=== PATIENT | female | born 1980 | race Caucasian/White ===

== ENCOUNTER 2024-09-08 15:57 | Emergency (ER) | payer SELFPAY ==
[2024-09-08 16:05] VITALS: BP 127/83; PULSE 110; RESP 16; TEMP 36.6; O2SAT 100
--- NOTE | 2024-09-08 17:10 | ED_ITS ---
HPI - Anxiety General Chief Complaint: Anxiety Stated Complaint: Anxiety Source: patient Mode of arrival: ambulatory Limitations: no limitations History of Present Illness HPI narrative: Patient presents for evaluation of anxiety. She indicates she drinks 5-8 shots of vodka daily. Last drink 1.5 days ago. She now reports anxiety and feeling jittery. She denies any visual or auditory hallucinations, paresthesias, palpitations, chest pain or shortness of breath. She indicates in the past she took lorazepam which helped reduce her anxiety levels. She denies any suicidal or homicidal ideations. Related Data Home Medications ?Medication ?Instructions ?Recorded ?Confirmed ?Last Taken ?Type albuterol sulfate 90 mcg/actuation 2 inh inhalation QID PRN shortness 09/08/24 Unknown History aerosol inhaler (Ventolin HFA) of breath or wheezing Allergies Allergy/AdvReac Type Severity Reaction Status Date / Time No Known Allergies Allergy Verified 09/08/24 16:22 Review of Systems Review of Systems: CONSTITUTIONAL: Denies fever, chills, or sweats. EYES: Denies visual changes, redness, or discharge. ENT: Denies rhinorrhea, congestion, sore throat, or otalgia. CARDIOVASCULAR: Denies chest pain, palpitations, or edema. RESPIRATORY: Denies cough or dyspnea. GASTROINTESTINAL: Denies abdominal pain, nausea, vomiting, or diarrhea. GENITOURINARY: Denies dysuria or hematuria. SKIN: Denies rash or itching. MUSCULOSKELETAL: Denies back pain, joint pain, or myalgia. NEUROLOGIC: Denies headache, numbness, dizziness, or weakness. PSYCHIATRIC: Reports anxiety and feeling jittery. Denies suicidal or homicidal ideations [facility] Past Medical History Medical History Anxiety Alcohol abuse Surgical History Surgical History No pertinent past surgical history Family History Family History Mother Family history non-contributory Social History Social History Smoking packs per day: 1 Smoking cigarettes per day: 20.0 Smoking status: Current every day smoker Tobacco type: cigarettes Alcohol intake: current Drinks per week: 50 Substance use: current Substance use type: marijuana Additional occupation/education comments: works at [employer] Gender identity (if verbalized by the patient): Female Sexual Orientation (if Verbalized by the Patient): Straight or Heterosexual Exam Narrative: GENERAL: Well-appearing, well-nourished, and in no acute distress. HEAD: Normocephalic, atraumatic. EYES: PERRLA and EOMI. ENT: Nares clear, no rhinorrhea or epistaxis. Mucous membranes moist. Oropharynx without tonsillar hypertrophy exudate or other lesions. Bilateral TMs pearly santizo nonbulging NECK: Supple. No adenopathy or masses. No carotid bruits or JVD CHEST: Clear to auscultation. No respiratory distress. No wheezes rales or rhonchi HEART: Regular rate and rhythm. No murmur heard. Normal peripheral pulses. ABDOMEN: Soft, nontender, nondistended, normal active bowel sounds. EXTREMITIES: Normal range of motion. No edema. SKIN: Warm, dry, no rash. NEURO: No focal deficits. Alert and oriented x3. PSYCH: Anxious and tearful Course Course Emergency Course: This is a 44-year-old female who presented for evaluation of anxiety after abruptly stopping alcohol consumption 1.5 days ago. Will discharge with lorazepam. She has no palpitations. Her heart rate is normal on my exam in triage likely secondary to tearful state. I provided her with resources for outpt follow up. She should go to the ER for SI, HI, palpitations, chest pain or SOB. Pt in agreement with plan of care. Level of Care: Express Care Visit Vital Signs Vital signs: Vital Signs Temperature 36.6 C 09/08/24 16:05 Pulse Rate 110 H 09/08/24 16:05 Respiratory Rate 16 09/08/24 16:05 Blood Pressure 127/83 09/08/24 16:05 Pulse Oximetry 100 09/08/24 16:05 Oxygen Delivery Room Air 09/08/24 16:05 Temperature 36.6 C 09/08/24 16:05 Pulse Rate 110 H 09/08/24 16:05 Respiratory Rate 16 09/08/24 16:05 Blood Pressure 127/83 09/08/24 16:05 Pulse Oximetry 100 09/08/24 16:05 Oxygen Delivery Room Air 09/08/24 16:05 Discharge Plan Discharge Clinical Impression: Anxiety, Alcohol abuse Patient Disposition: Home Condition: Stable Instructions: Antibiotic Form, Anxiety (ED), Alcohol Use Disorder (ED) Additional Instructions: YOU MAY FIND LOCAL ALCOHOLICS ANONYMOUS MEETINGS AT [email or web address] IF YOU HAVE CHEST PAIN, SHORTNESS OF BREATH, PALPITATIONS OR HALLUCINATIONS PLEASE GO TO THE ER Patient Language: Armenian Prescriptions: New lorazepam 1 mg tablet 1 mg PO TID PRN (Reason: alcohol withdrawal) Qty: 15 0RF No Action albuterol sulfate [Ventolin HFA] 90 mcg/actuation HFA aerosol inhaler 2 inh inhalation QID PRN (Reason: shortness of breath or wheezing) Follow-up/Referrals: Bushra Gerber DO [Physician] - Stand Alone Forms: Work/School Release IP Time of Disposition: 16:36
== END 2024-09-08 16:40 | disposition home or self-care (01) ==
PROVIDERS: Emergency Provider Nurse Practitioner
DX: F41.9 Anxiety disorder, unspecified (principal); F10.10 Alcohol abuse, uncomplicated; F17.210 Nicotine dependence, cigarettes, uncomplicated
CPT/HCPCS: 99203; G0463